=== PATIENT | female | born 1945 ===

== ENCOUNTER 2016-08-23 15:00 | Emergency (ER) | payer OTHER, MEDICAID ==
[2016-08-23 15:07] VITALS: BMI 29.0
[2016-08-23 15:14] VITALS: TEMP 99.8
--- NOTE | 2016-08-23 15:46 | ED PDOC ---
Arrival/HPI - General Chief Complaint: Cough, Cold, Congestion Time Seen by Provider: 08/23/16 15:24 Historian: Patient - History of Present Illness Narrative History of Present Illness (Text): 08/23/16 15:42 A 70 year old female, whose past medical history includes diabetes, hypertension , asthma, pneumonia and CAD, presents to the emergency department complaining of a productive cough for 1 week. History obtained through family who translated for patient. Patient notes yellow colored phlegm and mild shortness of breath. She states her symptoms worsen at night. Patient notes chills and nausea but denies any fever, vomiting, diarrhea, abdominal pain, urinary symptoms, chest pain or any other complaints. Patient denies any sick contact or recent travel. PMD: Dr. Joseph Hagen Time/Duration: 1 week Symptom Course: Unchanged Quality: Other Context: Home Past Medical History - Provider Review Nursing Documentation Reviewed: Yes - Infectious Disease Hx of Infectious Diseases: None - Cardiac Hx Cardiac Disorders: Yes Other/Comment: "heart blockage" - Pulmonary Hx Asthma: Yes - HEENT Hx HEENT Disorder: Yes Other/Comment: glasses - Renal Hx Renal Disorder: No - Endocrine/Metabolic Hx Endocrine Disorders: Yes Hx Diabetes Mellitus Type 2: Yes - Hematological/Oncological Hx Blood Disorders: No - Integumentary Hx Dermatological Disorder: No - Musculoskeletal/Rheumatological Hx Musculoskeletal Disorders: Yes Hx Arthritis: Yes Hx Falls: No Hx Osteoporosis: Yes - Gastrointestinal Hx Gastrointestinal Disorders: Yes Hx Gastroesophageal Reflux: Yes - Genitourinary/Gynecological Hx Genitourinary Disorders: Yes Hx Urinary Tract Infection: Yes - Psychiatric Hx Depression: Yes Hx Emotional Abuse: No Hx Physical Abuse: No Hx Substance Use: No - Surgical History Hx Section: Yes (x2) Hx Orthopedic Surgery: Yes (L wrist surgery) - Anesthesia Hx Anesthesia: Yes Hx Anesthesia Reactions: No - Suicidal Assessment Feels Threatened In Home Enviroment: No Family/Social History - Physician Review Nursing Documentation Reviewed: Yes Family/Social History: No Known Family HX Smoking Status: Never Smoked Hx Alcohol Use: No Hx Substance Use: No Hx Substance Use Treatment: No Allergies/Home Meds Allergies/Adverse Reactions: Allergies No Known Allergies Allergy (Verified 08/23/16 15:06) Home Medications: Home Meds Medication Instructions Recorded Confirmed Atorvastatin Calcium 20 mg PO DAILY 04/07/16 08/23/16 Glimepiride [Amaryl] 4 mg PO BID 04/07/16 08/23/16 Ibuprofen [Motrin Tab] 800 mg PO DAILY PRN 04/07/16 08/23/16 Isosorbide Mononitrate [Imdur] 30 mg PO DAILY 04/07/16 08/23/16 Lisinopril/Hydrochlorothiazide 1 each PO DAILY 04/07/16 08/23/16 [Lisinopril-Hctz 20-25 mg Tab] Montelukast Sodium [Singulair] 10 mg PO DAILY 04/07/16 08/23/16 Promethazine DM [Phenergan DM 2 tsp PO QID PRN 04/07/16 08/23/16 Syrup] Review of Systems - Physician Review All systems were reviewed & negative as marked: Yes - Review of Systems Constitutional: Night Sweats. absent: Fevers Respiratory: SOB, Cough, Sputum Cardiovascular: absent: Chest Pain Gastrointestinal: Nausea. absent: Abdominal Pain, Diarrhea, Vomiting Genitourinary Female: absent: Dysuria, Frequency, Hematuria, Urine Output Changes Physical Exam Vital Signs Reviewed: Yes Vital Signs Temp Pulse Resp BP Pulse Ox 08/23/16 17:00 68 18 148/67 97 08/23/16 15:12 99.8 F H 72 19 150/70 97 Temperature: Febrile Blood Pressure: Normal Pulse: Regular Respiratory Rate: Normal Appearance: Positive for: Well-Appearing, Non-Toxic, Comfortable Pain Distress: None Mental Status: Positive for: Alert and Oriented X 3 - Systems Exam Head: Present: Atraumatic, Normocephalic Pupils: Present: PERRL Extroacular Muscles: Present: EOMI Conjunctiva: Present: Normal Mouth: Present: Moist Mucous Membranes Pharnyx: Present: Normal. No: ERYTHEMA, EXUDATE, TONSILS ENLARGED, Peritonsilar Swelling, Uvular Deviation, Muffled/Hoarse Voice, Strider, Soft Palate/Uvular Edema Neck: Present: Normal Range of Motion Respiratory/Chest: Present: Clear to Auscultation, Good Air Exchange. No: Respiratory Distress, Accessory Muscle Use Cardiovascular: Present: Regular Rate and Rhythm, Normal S1, S2. No: Murmurs Abdomen: Present: Normal Bowel Sounds. No: Tenderness, Distention, Peritoneal Signs Back: Present: Normal Inspection Upper Extremity: Present: Normal Inspection. No: Cyanosis, Edema Lower Extremity: Present: Normal Inspection. No: Edema Neurological: Present: GCS=15, CN II-XII Intact, Speech Normal Skin: Present: Warm, Dry, Normal Color. No: Rashes Psychiatric: Present: Alert, Oriented x 3, Normal Insight, Normal Concentration Medical Decision Making ED Course and Treatment: 08/23/16 15:42 Impression: A 70 year old female with a cough and yellow sputum. Patient notes mild shortness of breath, chills and nausea. Physical exam unremarkable. Plan: -- Chest xray -- Blood culture -- Labs -- Reassess and disposition Prior Visits: Notes and results from previous visits were reviewed. Patient last seen in the ED on 04/07/16 and hospitalized for asthma exacerbation and bronchitis. Progress Notes: - Lab Interpretations Lab Results: 08/23/16 16:15 08/23/16 16:15 Lab Results 08/23/16 16:15: Sodium 142, Potassium 4.5, Chloride 103, Carbon Dioxide 29, Anion Gap 15, BUN 20, Creatinine 1.3, Est GFR ( Amer) 49, Est GFR (Non- Af Amer) 40, Random Glucose 108, Calcium 8.8, Total Bilirubin 0.9, AST 30, ALT 35, Alkaline Phosphatase 113, Total Protein 7.1, Albumin 3.8, Globulin 3.3, Albumin/Globulin Ratio 1.2 08/23/16 16:15: WBC 7.2 D, RBC 3.78, Hgb 10.5 L, Hct 32.0 L, MCV 84.7, MCH 27.8 , MCHC 32.8, RDW 13.7, Plt Count 242, MPV 8.4, Gran % 70.7 H, Lymph % (Auto) 18.8 L, Bollinger % (Auto) 9.0 H, Eos % (Auto) 1.2 L, Baso % (Auto) 0.3, Gran # 5.12 , Lymph # 1.4, Bollinger # 0.7 H, Eos # 0.1, Baso # 0.02 I have reviewed the lab results: Yes - RAD Interpretation Radiology Orders: 08/23/16 15:43 CHEST TWO VIEWS (PA/LAT) [RAD] Stat - Scribe Statement The provider has reviewed the documentation as recorded by the Scribe Nadia Scott Provider Scribe Attestation: All medical record entries made by the Scribe were at my direction and personally dictated by me. I have reviewed the chart and agree that the record accurately reflects my personal performance of the history, physical exam, medical decision making, and the department course for this patient. I have also personally directed, reviewed, and agree with the discharge instructions and disposition. Disposition/Present on Arrival - Present on Arrival Any Indicators Present on Arrival: No History of DVT/PE: No History of Uncontrolled Diabetes: No Urinary Catheter: No History of Decub. Ulcer: No History Surgical Site Infection Following: None - Disposition Have Diagnosis and Disposition been Completed?: Yes Diagnosis: Bronchitis Disposition: HOME/ ROUTINE Disposition Time: 17:40 Patient Plan: Discharge Condition: GOOD Discharge Instructions (ExitCare): Acute Bronchitis (ED) Additional Instructions: Thank you for letting us take care of you today. Your provider was Dr. Kaur. You were treated for bronchitis. The emergency medical care you received today was directed at your acute symptoms. If you were prescribed any medication, please fill it and take as directed. It may take several days for your symptoms to resolve. Return to the Emergency Department if your symptoms worsen, do not improve, or if you have any other problems. Please contact your doctor or call one of the physicians/clinics you have been referred to that are listed on the Patient Visit Information form that is included in your discharge packet. Bring any paperwork you were given at discharge with you along with any medications you are taking to your follow up visit. Our treatment cannot replace ongoing medical care by a primary care provider (PCP) outside of the emergency department. Thank you for allowing the [facility] [employer] team to be part of your care today. Follow up with your doctor in 3-4 days to be re-evaluated. Prescriptions: Azithromycin [Zithromax] 250 mg PO DAILY #6 tab Referrals: Joseph Hagen DO [Primary Care Provider] - Follow up with primary
[2016-08-23 16:24] LABS: ADD MANUAL DIFF? NO
[2016-08-23 16:35] LABS: BASO # 0.02 K/mm3 (0.0-2.0); BASO % 0.3 % (0.0-3.0); EOS # 0.1 (0.0-0.7); EOS % 1.2 % (1.5-5.0); GRAN # 5.12 (1.4-6.5); GRAN % 70.7 % (50.0-68.0); LYMPH # 1.4 (1.2-3.4); LYMPH % 18.8 % (22.0-35.0); MEAN CELL VOLUME 84.7 fL (80.0-105.0); MEAN CORPUSCULAR HEMOGLOBIN 27.8 pg (25.0-35.0); MEAN CORPUSCULAR HGB CONC 32.8 g/dl (31.0-37.0); MEAN PLATELET VOLUME 8.4 fl (7.0-11.0); MONO # 0.7 (0.1-0.6); PLATELET COUNT 242 10^3/uL (120.0-450.0); RED CELL DISTRIBUTION WIDTH 13.7 % (11.5-14.5); WHITE BLOOD COUNT 7.2 10^3/ul (4.5-11.0)
[2016-08-23 16:37] LABS: ALB/GLOB RATIO 1.2 (1.1-1.8); BILIRUBIN,TOTAL 0.9 mg/dL (0.2-1.3); CALCIUM 8.8 mg/dL (8.4-10.5); POTASSIUM 4.5 mmol/L (3.6-5.0); TOTAL PROTEIN 7.1 g/dL (5.8-8.3)
[2016-08-23 17:00] VITALS: PULSE 68
[2016-08-23 19:25] VITALS: BP 147/70; RESP 16; O2SAT 98
--- NOTE | 2016-08-24 08:35 | RAD ---
HISTORY: r/o infiltrate COMPARISON: 04/08/2016 TECHNIQUE: Chest PA and lateral FINDINGS: LUNGS: No active pulmonary disease. PLEURA: No significant pleural effusion identified. No pneumothorax apparent. CARDIOVASCULAR: Normal. OSSEOUS STRUCTURES: No significant abnormalities. VISUALIZED UPPER ABDOMEN: Normal. OTHER FINDINGS: None. IMPRESSION: No active disease.
== END 2016-08-23 18:37 | disposition home or self-care (01) ==
LOC: ED 15:00
DX: J40 Bronchitis, not specified as acute or chronic (principal)

== ENCOUNTER 2016-12-28 10:15 | Emergency (ER) | payer OTHER ==
[2016-12-28 10:15] VITALS: BMI 29.0
[2016-12-28 10:43] VITALS: BP 106/60; PULSE 77; RESP 16; TEMP 98.6; O2SAT 99
--- NOTE | 2016-12-28 11:32 | ED PDOC ---
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 History obtained through scribe who translated for patient. Patient reports she was seen by her PMD who prescribed Silvadene cream. Patient denies any new medication or antibiotic use. Patient denies any fever, chills, nausea or any other complaints. Time/Duration: 1 week Symptom Course: Worsening Quality: Other Context: Home Past Medical History - Provider Review Nursing Documentation Reviewed: Yes - Infectious Disease Hx of Infectious Diseases: None - Cardiac Hx Cardiac Disorders: Yes Hx Hypertension: Yes - Pulmonary Hx Respiratory Disorders: Yes Hx Asthma: Yes - Neurological Hx Neurological Disorder: No - HEENT Hx HEENT Disorder: No - Renal Hx Renal Disorder: No - Endocrine/Metabolic Hx Endocrine Disorders: Yes Hx Diabetes Mellitus Type 2: Yes - Hematological/Oncological Hx Blood Disorders: No - Integumentary Hx Dermatological Disorder: No - Musculoskeletal/Rheumatological Hx Musculoskeletal Disorders: Yes Hx Arthritis: Yes Hx Falls: No Hx Osteoporosis: Yes - Gastrointestinal Hx Gastrointestinal Disorders: Yes Hx Gastroesophageal Reflux: Yes - Genitourinary/Gynecological Hx Genitourinary Disorders: Yes Hx Urinary Tract Infection: Yes - Psychiatric Hx Psychophysiologic Disorder: Yes Hx Depression: Yes Hx Emotional Abuse: No Hx Physical Abuse: No Hx Substance Use: No - Surgical History Hx Cardiac Catheterization: Yes Hx Section: Yes (x2) Hx Orthopedic Surgery: Yes (L wrist surgery) - Anesthesia Hx Anesthesia: Yes Hx Anesthesia Reactions: No - Suicidal Assessment Feels Threatened In Home Enviroment: No Family/Social History - Physician Review Nursing Documentation Reviewed: Yes Family/Social History: No Known Family HX Smoking Status: Never Smoked Hx Alcohol Use: No Hx Substance Use: No Hx Substance Use Treatment: No Allergies/Home Meds Allergies/Adverse Reactions: Allergies No Known Allergies Allergy (Verified 12/28/16 10:43) Physical Exam - Physical Exam Narrative Physical Exam (Text): - Review of Systems Constitutional: Normal. absent: Fatigue, Weight Change, Fevers Eyes: Normal ENT: Normal Respiratory: Normal absent: SOB, Cough, Sputum Cardiovascular: Normal absent: Chest pain, Palpitations, Syncope Gastrointestinal: Normal absent: Abdominal pain, Diarrhea, Nausea, Vomiting Genitourinary: Normal. absent: Dysuria, Frequency, Hematuria Musculoskeletal: Normal. absent: Arthralgias, Back Pain, Neck Pain Skin: (+) Body rash Neurological: Normal absent: Focal Weakness Endocrine: Normal Hemo/Lymphatic: Normal Psychiatric: Normal - Physical exam Patient appears age appropriate, speaking full sentences without difficulty - Systems Exam Head: Present: Atraumatic, Normocephalic Pupils: Present: PERRL Extraocular Muscles: Present: EOMI Conjunctiva: Present: Normal Mouth: Present: Moist Mucous Membranes, Oral mucosa unremarkable. Neck: Present: Normal Range of Motion. No: MIDLINE TENDERNESS, Paraspinal Tenderness Respiratory/Chest: Present: Clear to Auscultation, Good Air Exchange. No: Respiratory Distress, Accessory Muscle Use, Tachypnic Cardiovascular: Present: Regular Rate and Rhythm, Normal S1, S2, Peripheral Pulses Present. No: Murmurs Abdomen: Present: Normal Bowel Sounds, No: Tenderness, Peritoneal Signs, Rebound, Guarding, Distention Back: Present: Normal Inspection. No: Midline Tenderness, Paraspinal Tenderness Upper Extremity: Present: Normal Inspection. No: Cyanosis, Edema Lower Extremity: Present: Normal Inspection. No: Edema Neurological: Present: GCS=15, Speech Normal, cranial nerves II through XII fully intact with no cerebellar abnormality, neuro-sensory fully intact. No focal neurological deficits. Skin: Present: Warm, Dry, Diffuse erythematous rash sparring palms and soles, no evidence of superimposed infection except superficial crust noted around nose. Lymphatic: Present: OX3, NI, NC Psychiatric: Present: Alert, Oriented x 3, Normal Insight, Normal Concentration Vital Signs Reviewed: Yes Vital Signs Temp Pulse Resp BP Pulse Ox 12/28/16 10:43 98.6 F 77 16 106/60 99 Temperature: Afebrile Blood Pressure: Normal Pulse: Regular Respiratory Rate: Normal Appearance: Positive for: Well-Appearing, Non-Toxic, Comfortable Pain Distress: None Mental Status: Positive for: Alert and Oriented X 3 Medical Decision Making ED Course and Treatment: 12/28/16 11:31 Impression: A 71 year old female with a erythematous itchy rash throughout her body. On exam , diffuse rash sparring palms and soles with superficial yellow crusting noted around nose. Prior Visits: Notes and results from previous visits were reviewed. Patient last seen in the ED on 08/23/16 for a cough and discharged with acute bronchitis. Progress Notes: Patient instructed to stop applying Silvadene cream to face and told to use topical Bacitracin. Packets provided to the patient in the emergency room. given Rx for prednisone, benadryl, pepsid pt instructed to f/u with her PMD in 1-2 days for reevaluation states she feels comfortable being dc'd home Pt states she understands to return to the ER right away for new or worsening symptoms or for inability to f/u with PMD or specialist as instructed. Patient states that she fully agrees with and understands discharge instructions. States that she agrees with the plan and disposition. Verbalized and repeated discharge instructions and plan. I have given the patient opportunity to ask any additional questions. - Scribe Statement The provider has reviewed the documentation as recorded by the Romyibe Nadia Scott Provider Scribe Attestation: All medical record entries made by the Scribe were at my direction and personally dictated by me. I have reviewed the chart and agree that the record accurately reflects my personal performance of the history, physical exam, medical decision making, and the department course for this patient. I have also personally directed, reviewed, and agree with the discharge instructions and disposition. Disposition/Present on Arrival - Present on Arrival Any Indicators Present on Arrival: No History of DVT/PE: No History of Uncontrolled Diabetes: No Urinary Catheter: No History of Decub. Ulcer: No History Surgical Site Infection Following: None - Disposition Have Diagnosis and Disposition been Completed?: Yes Diagnosis: Rash Disposition: HOME/ ROUTINE Disposition Time: 11:33 Patient Plan: Discharge Condition: GOOD Discharge Instructions (ExitCare): Acute Rash (ED) Additional Instructions: PLEASE DO NOT APPLY SYLVADENE CREME TO YOUR FACE FOLLOW UP WITH DR. VELEZ IN THE NEXT 48 HOURS FOR REEVALUATION RETURN TO THE ER RIGHT AWAY FOR NEW OR WORSENING SYMPTOMS OR IF YOU CANNOT FOLLOW UP INSTRUCTED Prescriptions: DiphenhydrAMINE [Benadryl] 50 mg PO BID PRN #14 cap PRN Reason: Itching / Pruritus RX: Famotidine [Pepcid] 20 mg PO BID #14 tab RX: predniSONE [predniSONE Tab] 60 mg PO DAILY #12 tab Referrals: Joseph Velez DO [Primary Care Provider] - Follow up with primary Forms: [employer] (Polish)
== END 2016-12-28 11:55 | disposition home or self-care (01) ==
LOC: ED 10:15
DX: R21 Rash and other nonspecific skin eruption (principal)

== ENCOUNTER 2017-01-19 20:14 | Emergency (ER) | payer MEDICARE, OTHER ==
[2017-01-19 20:35] VITALS: BP 114/54; PULSE 89; RESP 16; TEMP 98.2; O2SAT 96; BMI 34.2
--- NOTE | 2017-01-19 20:36 | ED PDOC ---
Arrival/HPI - General Time Seen by Provider: 01/19/17 20:26 Historian: Patient - History of Present Illness Narrative History of Present Illness (Text): 01/19/17 20:27 71 y/o female, pmh including htn/dm/cad, nkda, c/o bilateral arms and facial itching rash x 3 weeks. Itching rash, no pain, admits scratching on it a lot especially the rt. arm region, no fever or chills, no headache or night sweat, no dizziness, no palpitation, no night sweat, no other medical or psychological complaints. Past Medical History - Provider Review Nursing Documentation Reviewed: Yes - Infectious Disease Hx of Infectious Diseases: None - Cardiac Hx Cardiac Disorders: Yes Hx Hypertension: Yes - Pulmonary Hx Respiratory Disorders: Yes Hx Asthma: Yes - Neurological Hx Neurological Disorder: No - HEENT Hx HEENT Disorder: No - Renal Hx Renal Disorder: No - Endocrine/Metabolic Hx Endocrine Disorders: Yes Hx Diabetes Mellitus Type 2: Yes - Hematological/Oncological Hx Blood Disorders: No - Integumentary Hx Dermatological Disorder: No - Musculoskeletal/Rheumatological Hx Musculoskeletal Disorders: Yes Hx Arthritis: Yes Hx Falls: No Hx Osteoporosis: Yes - Gastrointestinal Hx Gastrointestinal Disorders: Yes Hx Gastroesophageal Reflux: Yes - Genitourinary/Gynecological Hx Genitourinary Disorders: Yes Hx Urinary Tract Infection: Yes - Psychiatric Hx Psychophysiologic Disorder: Yes Hx Depression: Yes Hx Emotional Abuse: No Hx Physical Abuse: No Hx Substance Use: No - Surgical History Hx Cardiac Catheterization: Yes Hx Section: Yes (x2) Hx Orthopedic Surgery: Yes (L wrist surgery) - Anesthesia Hx Anesthesia: Yes Hx Anesthesia Reactions: No - Suicidal Assessment Feels Threatened In Home Enviroment: No Family/Social History - Physician Review Nursing Documentation Reviewed: Yes Family/Social History: Unknown Family HX Smoking Status: Never Smoked Hx Alcohol Use: No Hx Substance Use: No Hx Substance Use Treatment: No Allergies/Home Meds Allergies/Adverse Reactions: Allergies No Known Allergies Allergy (Verified 01/19/17 20:33) Home Medications: Home Meds Medication Instructions Recorded Confirmed Aspirin [Lo-Dose Aspirin EC] 81 mg PO DAILY 01/19/17 01/19/17 Isosorbide Mononitrate [Isosorbide 30 mg PO DAILY 01/19/17 01/19/17 Mononitrate ER] Lisinopril/Hydrochlorothiazide 1 each PO DAILY 01/19/17 01/19/17 [Lisinopril-Hctz 10-12.5 mg Tab] Methylprednisolone [Medrol Dose 4 mg PO DAILY 01/19/17 01/19/17 Pack (21 tabs)] Review of Systems - Review of Systems Constitutional: absent: Fatigue, Fevers Eyes: absent: Vision Changes ENT: absent: Hearing Changes Respiratory: absent: SOB, Cough Cardiovascular: absent: Chest Pain Gastrointestinal: absent: Abdominal Pain, Diarrhea, Nausea, Vomiting Musculoskeletal: absent: Arthralgias, Back Pain Skin: Rash, Pruritis, Skin Lesions. absent: Laceration, Abscess, Ulcer Neurological: absent: Headache, Dizziness Physical Exam Vital Signs Reviewed: Yes Temperature: Afebrile Pulse: Regular Respiratory Rate: Normal Appearance: Positive for: Well-Appearing, Non-Toxic, Comfortable Pain Distress: None Mental Status: Positive for: Alert and Oriented X 3 - Systems Exam Head: Present: Atraumatic, Normocephalic Pupils: Present: PERRL Extroacular Muscles: Present: EOMI Conjunctiva: Present: Normal Mouth: Present: Moist Mucous Membranes Neck: Present: Normal Range of Motion Respiratory/Chest: Present: Clear to Auscultation, Good Air Exchange. No: Respiratory Distress, Accessory Muscle Use Cardiovascular: Present: Regular Rate and Rhythm, Normal S1, S2. No: Murmurs Abdomen: Present: Normal Bowel Sounds. No: Tenderness, Distention, Peritoneal Signs Back: Present: Normal Inspection Upper Extremity: Present: Normal Inspection. No: Cyanosis, Edema Lower Extremity: Present: Normal Inspection. No: Edema Neurological: Present: GCS=15, Speech Normal, Motor Func Grossly Intact, Gait Normal, Memory Normal Skin: Present: Warm, Dry, Rashes (bilateral upper extremities on the extensor surface and bilateral nasal/labial fold regions: there is lichenication and hyperkerotic rash noted with the rt. humeral extensor region with mild erythematous but no streaking or ulcers. ), Normal Color Psychiatric: Present: Alert, Oriented x 3, Normal Insight, Normal Concentration Medical Decision Making ED Course and Treatment: 01/19/17 20:40 -decadrone IM and keflex po -Discharge home with lotrisone, keflex, stay hyrated, avoid rubbing or touching the rash, follow up with your own pmd and solid propellant processor within 2 days, return to the ER for any new or worsening signs or symptoms. - PA / NURSING INFORMATION SYSTEMS COORDINATOR / Resident Statement MD/DO has reviewed & agrees with the documentation as recorded. Disposition/Present on Arrival - Present on Arrival Any Indicators Present on Arrival: No History of DVT/PE: No History of Uncontrolled Diabetes: No Urinary Catheter: No History of Decub. Ulcer: No History Surgical Site Infection Following: None - Disposition Have Diagnosis and Disposition been Completed?: Yes Diagnosis: Contact dermatitis, Cellulitis Disposition: HOME/ ROUTINE Disposition Time: 20:41 Patient Plan: Discharge Condition: GOOD Discharge Instructions (ExitCare): Cellulitis (ED) Additional Instructions: -Discharge home with lotrisone, keflex, stay hyrated, avoid rubbing or touching the rash, follow up with your own pmd and solid propellant processor within 2 days, return to the ER for any new or worsening signs or symptoms. Prescriptions: Cephalexin [Keflex] 500 mg PO QID #28 capsule Clotrimazole/Betamethasone [Lotrisone] 1 appful EXT BID #60 g Referrals: Fani Gleason MD [Staff Provider] - Follow up with primary Forms: WORK NOTE
== END 2017-01-19 21:00 | disposition home or self-care (01) ==
LOC: ED 20:14
DX: L25.9 Unspecified contact dermatitis, unspecified cause (principal); L03.113 Cellulitis of right upper limb
CPT/HCPCS: 96372; 99283; J1100

== ENCOUNTER 2017-02-19 21:36 | Emergency (ER) | payer MEDICAID, MEDICARE, OTHER ==
[2017-02-19 21:37] VITALS: BMI 34.2
--- NOTE | 2017-02-19 21:55 | ED PDOC ---
Arrival/HPI - General Time Seen by Provider: 02/19/17 21:44 Historian: Patient - History of Present Illness Narrative History of Present Illness (Text): 02/19/17 21:52 71 y/o female, pmh including htn/asthma, nkda, not on any anticoagulant or antiplatete, c/o rt. shoulder pain s/p slipped and fall in the shower yesterday. Pt. was taking the shower yesterday, slipped on the wet floor, fall on the rt. shoulder and hit the posterior aspect of the head, no LOC, no nausea or vomiting, able to recall the whole event, no chest pain or shortness of breath, no palpitation, no neck/back pain, no abdominal pain, no hematuria, no night sweat, eating and drinking well, scheduled to see her own pmd next week regarding about the frequent fall, no change in energy level, no other medical or psychological complaints. Past Medical History - Provider Review Nursing Documentation Reviewed: Yes - Infectious Disease Hx of Infectious Diseases: None - Cardiac Hx Cardiac Disorders: Yes Hx Hypertension: Yes - Pulmonary Hx Respiratory Disorders: Yes Hx Asthma: Yes - Neurological Hx Neurological Disorder: No - HEENT Hx HEENT Disorder: No - Renal Hx Renal Disorder: No - Endocrine/Metabolic Hx Endocrine Disorders: Yes Hx Diabetes Mellitus Type 2: Yes - Hematological/Oncological Hx Blood Disorders: No - Integumentary Hx Dermatological Disorder: No - Musculoskeletal/Rheumatological Hx Musculoskeletal Disorders: Yes Hx Arthritis: Yes Hx Falls: No Hx Osteoporosis: Yes - Gastrointestinal Hx Gastrointestinal Disorders: Yes Hx Gastroesophageal Reflux: Yes - Genitourinary/Gynecological Hx Genitourinary Disorders: Yes Hx Urinary Tract Infection: Yes - Psychiatric Hx Psychophysiologic Disorder: Yes Hx Depression: Yes Hx Emotional Abuse: No Hx Physical Abuse: No Hx Substance Use: No - Surgical History Hx Cardiac Catheterization: Yes Hx Section: Yes (x2) Hx Orthopedic Surgery: Yes (L wrist surgery) - Anesthesia Hx Anesthesia: Yes Hx Anesthesia Reactions: No - Suicidal Assessment Feels Threatened In Home Enviroment: No Family/Social History - Physician Review Nursing Documentation Reviewed: Yes Family/Social History: Unknown Family HX Smoking Status: Never Smoked Hx Alcohol Use: No Hx Substance Use: No Hx Substance Use Treatment: No Allergies/Home Meds Allergies/Adverse Reactions: Allergies No Known Allergies Allergy (Verified 01/19/17 20:33) Home Medications: Home Meds Medication Instructions Recorded Confirmed Aspirin [Lo-Dose Aspirin EC] 81 mg PO DAILY 01/19/17 02/19/17 Isosorbide Mononitrate [Isosorbide 30 mg PO DAILY 01/19/17 02/19/17 Mononitrate ER] Lisinopril/Hydrochlorothiazide 1 each PO DAILY 01/19/17 02/19/17 [Lisinopril-Hctz 10-12.5 mg Tab] Methylprednisolone [Medrol Dose 4 mg PO DAILY 01/19/17 02/19/17 Pack (21 tabs)] Review of Systems - Review of Systems Constitutional: absent: Fatigue, Fevers Eyes: absent: Vision Changes ENT: absent: Hearing Changes Respiratory: absent: SOB, Cough Cardiovascular: absent: Chest Pain Gastrointestinal: absent: Abdominal Pain, Nausea, Vomiting Genitourinary Female: absent: Dysuria, Frequency, Hematuria, Urine Output Changes Musculoskeletal: Arthralgias. absent: Back Pain, Neck Pain Neurological: absent: Headache, Dizziness Psychiatric: absent: Anxiety, Depression Physical Exam Vital Signs Reviewed: Yes Vital Signs Temp Pulse Resp BP Pulse Ox 02/19/17 21:50 98.2 F 76 18 132/68 98 Temperature: Afebrile Blood Pressure: Normal Pulse: Regular Respiratory Rate: Normal Appearance: Positive for: Well-Appearing, Non-Toxic, Comfortable Pain Distress: Mild Mental Status: Positive for: Alert and Oriented X 3 - Systems Exam Head: Present: Atraumatic, Normocephalic Pupils: Present: PERRL Extroacular Muscles: Present: EOMI Conjunctiva: Present: Normal Ears: Present: NORMAL TM, Normal Canal. No: Erythema Mouth: Present: Moist Mucous Membranes Pharnyx: No: ERYTHEMA, EXUDATE, TONSILS ENLARGED Nose (External): No: Atraumatic, Abrasion, Contusion Nose (Internal): No: Normal Inspection, No Active Bleeding, Rhinorrhea Neck: Present: Normal Range of Motion, Trachea Midline. No: Meningeal Signs, MIDLINE TENDERNESS, Paraspinal Tenderness, Lymphadenopathy Respiratory/Chest: Present: Clear to Auscultation, Good Air Exchange, Other (no ecchymosis or any skin discoloration). No: Respiratory Distress, Accessory Muscle Use, Wheezes, Decreased Breath Sounds, Rales, Retracting, Rhonchi, Tachypneic, Tender to Palpation Cardiovascular: Present: Regular Rate and Rhythm, Normal S1, S2. No: Murmurs Abdomen: Present: Normal Bowel Sounds. No: Tenderness, Distention, Peritoneal Signs, Rebound, Guarding Back: Present: Normal Inspection, Other (no ecchymosis or skin discoloration). No: CVA Tenderness, Midline Tenderness, Paraspinal Tenderness Upper Extremity: Present: Normal Inspection, Normal ROM, NORMAL PULSES, Neurovascularly Intact, Capillary Refill < 2s, Other (Rt. shoulder: mild +ttp on the rt. posterior shoulder joint line, no swelling, no deformity, FROM without limitation, sensation intact, motor 5/5, +radial pulse, capillary refill < 2 seconds. ). No: Cyanosis, Edema, Deformity Lower Extremity: Present: Normal Inspection, Normal ROM. No: Edema, Tenderness , Swelling, Deformity Neurological: Present: GCS=15, Speech Normal, Motor Func Grossly Intact, Gait Normal, Memory Normal Skin: Present: Warm, Dry, Normal Color. No: Rashes Psychiatric: Present: Alert, Oriented x 3, Normal Insight, Normal Concentration Medical Decision Making ED Course and Treatment: 02/19/17 22:16 -CT head/rt. shoulder xray -tylenol for pain -sling -Observe and reassess 02/19/17 23:48 -CT Head show no acute findings -Rt. shoulder xray show no active disease -UA show no UTI -Pain improved, will discharge home. -Discharge home with tylenol, sling, bed rest, follow up with your own pmd and orthopedic/neurologist within 2 days, return to the ER for any new or worsening signs or symptoms. - Lab Interpretations Lab Results: Lab Results 02/19/17 22:45: Urine Color Yellow, Urine Appearance Clear, Urine pH 6.0, Ur Specific [place] 1.010, Urine Protein Negative, Urine Glucose (UA) 500 H, Urine Ketones Negative, Urine Blood Small H, Urine Nitrate Negative, Urine Bilirubin Negative, Urine Urobilinogen 0.2, Ur Leukocyte Esterase Negative, Urine RBC 0 - 2, Urine WBC Negative I have reviewed the lab results: Yes Interpretation: No clinic. lab abnormalty - RAD Interpretation Radiology Orders: 02/19/17 22:11 HEAD W/O CONTRAST [CT] Stat SHOULDER RIGHT [RAD] Stat CT Head: FINDINGS: Artifacts: Streak artifact degrades image quality. Motion artifact degrades image quality. Brain: Ventricles are normal in size and configuration. There is no midline shift. There are no intraaxial or extra-axial mass lesions or areas of hemorrhage. There are no abnormal fluid collections. Engel-white differentiation is maintained. Ventricles: See above. Bones: Cranial vault is intact. There is congenital nonunion of the posterior arch of C1 Soft tissues: unremarkable Sinuses: There is no acute sinusitis. Ears and mastoids: Middle ears are unremarkable. Right mastoid is incompletely pneumatized. Left mastoid is unremarkable. Orbits: Orbital contents are unremarkable. IMPRESSION: No acute intracranial abnormality Thank you for allowing us to participate in the care of your patient. Dictated and Authenticated by: Milagro Morales MD 02/19/2017 11:40 PM Eastern Time ([place] & [place]) Rt. shoulder xray: degenerative changes without fracture or dislocation Negotiator Sales: Radiologist - Medication Orders Current Medication Orders: Discontinued Medications Acetaminophen (Tylenol 325mg Tab) 650 mg PO STAT STA Stop: 02/19/17 22:18 Last Admin: 02/19/17 22:33 Dose: 650 mg MAR Pain/Vitals Document 02/19/17 22:33 SS (Rec: 02/19/17 22:34 SS [id number]) Pain Reassessment Is This A Pain ReAssessment? No Sleep Is patient sleeping during reassessment? No Presence of Pain Presence of Pain Yes Location Left, Right or Bilateral Right Pain Location Body Site Shoulder - PA / SERVICES MGR / Resident Statement MD/DO has reviewed & agrees with the documentation as recorded. Disposition/Present on Arrival - Present on Arrival Any Indicators Present on Arrival: No History of DVT/PE: No History of Uncontrolled Diabetes: No Urinary Catheter: No History of Decub. Ulcer: No History Surgical Site Infection Following: None - Disposition Have Diagnosis and Disposition been Completed?: Yes Diagnosis: Accidental fall, Shoulder injury, Shoulder pain, Head injury Disposition: HOME/ ROUTINE Disposition Time: 23:49 Patient Plan: Discharge Condition: IMPROVED Additional Instructions: -Discharge home with tylenol, sling, bed rest, follow up with your own pmd and orthopedic/neurologist within 2 days, return to the ER for any new or worsening signs or symptoms. Prescriptions: Acetaminophen [Tylenol 325mg tab] 2 tab PO QID PRN #30 tab PRN Reason: Other Referrals: Shai Roblero MD [Staff Provider] - Follow up with primary Bhavesh Flores MD [Staff Provider] - Follow up with primary [facility] [place] - Follow up with primary Forms: WORK NOTE
[2017-02-19 22:10] VITALS: BP 132/68; PULSE 76; RESP 18; TEMP 98.2; O2SAT 98
[2017-02-19 22:54] LABS: URINE BILIRUBIN NEGATIVE (NEGATIVE); URINE BLOOD SMALL (NEGATIVE); URINE GLUCOSE (UA) 500 mg/dL (NEGATIVE); URINE KETONE NEGATIVE (NEGATIVE); URINE LEUKOCYTE ESTERASE NEGATIVE Leu/uL (NEGATIVE); URINE PROTEIN NEGATIVE mg/dL (<30 mg/dL); URINE UROBILINOGEN 0.2 E.U./dL (<1 E.U./dL)
[2017-02-19 22:59] LABS: URINE APPEARANCE CLEAR (CLEAR); URINE COLOR YELLOW (YELLOW); URINE RBC 0 - 2 /hpf (0-2); URINE WBC NEGATIVE /hpf (0-6)
--- NOTE | 2017-02-19 23:41 | CT ---
EXAM: CT Head Without Intravenous Contrast EXAM DATE/TIME: 02/19/2017 10:11 PM CLINICAL HISTORY: 71 years old, female; Injury or trauma; Fall; Initial encounter; Sprain or strain; Additional info: Slip and fall yesterday. Part of scan repeated due to patient motion. TECHNIQUE: Axial computed tomography images of the head/brain without intravenous contrast. All CT scans at this facility use one or more dose reduction techniques, viz.: automated exposure control; ma/kV adjustment per patient size (including targeted exams where dose is matched to indication; i.e. head); or iterative reconstruction technique. COMPARISON: There are no prior studies for comparison. FINDINGS: Artifacts: Streak artifact degrades image quality. Motion artifact degrades image quality. Brain: Ventricles are normal in size and configuration. There is no midline shift. There are no intra-axial or extra-axial mass lesions or areas of hemorrhage. There are no abnormal fluid collections. Engel-white differentiation is maintained. Ventricles: See above. Bones: Cranial vault is intact. There is congenital nonunion of the posterior arch of C1 Soft tissues: unremarkable Sinuses: There is no acute sinusitis. Ears and mastoids: Middle ears are unremarkable. Right mastoid is incompletely pneumatized. Left mastoid is unremarkable. Orbits: Orbital contents are unremarkable. IMPRESSION: No acute intracranial abnormality
--- NOTE | 2017-02-20 10:14 | RAD ---
PROCEDURE: Radiographs of the Right Shoulder HISTORY: rt. shoulder pain s/p slip and fall yesterday. COMPARISON: No prior. FINDINGS: BONES: No acute fracture or destructive bony lesion identified. JOINTS: Glenohumeral and acromioclavicular joints are remarkable only for acromioclavicular joint degenerative osteophytes superiorly and inferiorly. SOFT TISSUES: Normal. OTHER FINDINGS: None. IMPRESSION: Degenerative acromioclavicular joint changes without fracture or dislocation identified throughout the exam.
== END 2017-02-20 00:25 | disposition home or self-care (01) ==
LOC: ED 21:36
DX: S09.90XA Unspecified injury of head, initial encounter (principal); S49.91XA Unspecified injury of right shoulder and upper arm, initial encounter; W01.0XXA Fall on same level from slipping, tripping and stumbling without subsequent striking against object, initial encounter; M25.511 Pain in right shoulder; E11.9 Type 2 diabetes mellitus without complications; I10 Essential (primary) hypertension; M81.0 Age-related osteoporosis without current pathological fracture

== ENCOUNTER 2017-06-10 14:31 | Emergency (ER) | payer OTHER ==
[2017-06-10 15:29] VITALS: BMI 30.1
--- NOTE | 2017-06-10 17:17 | ED PDOC ---
Arrival/HPI - General Chief Complaint: Hip Pain Time Seen by Provider: 06/10/17 15:41 Historian: Patient - History of Present Illness Narrative History of Present Illness (Text): 06/10/17 17:12 71-year-old female presents with right-sided back pain and right hip pain that started this morning. Patient states when she woke up from sleep she had a severe pain in the right side of the back. Patient states the pain goes into the hip and down the leg. Patient states pain is worse with movement of the back , worse with movement of the leg and worse with ambulation. Patient went to the primary care physician and was advised to come to the emergency room for further evaluation to rule out hip fracture. Patient denies any recent trauma or injury. No medications have been taken for pain at home. She denies bladder or bowel incontinence. She denies abdominal pain. No chest pain or shortness of breath. She denies numbness or tingling in the extremity. No other complaints Past Medical History - Provider Review Nursing Documentation Reviewed: Yes - Travel History Have you recently traveled outside [place] w/in the past 3 mons?: No - Infectious Disease Hx of Infectious Diseases: None - Cardiac Hx Cardiac Disorders: Yes Hx Hypertension: Yes - Pulmonary Hx Respiratory Disorders: Yes Hx Asthma: Yes - Neurological Hx Neurological Disorder: No - HEENT Hx HEENT Disorder: No - Renal Hx Renal Disorder: No - Endocrine/Metabolic Hx Endocrine Disorders: Yes Hx Diabetes Mellitus Type 2: Yes - Hematological/Oncological Hx Blood Disorders: No - Integumentary Hx Dermatological Disorder: No - Musculoskeletal/Rheumatological Hx Musculoskeletal Disorders: Yes Hx Arthritis: Yes Hx Falls: No Hx Osteoporosis: Yes - Gastrointestinal Hx Gastrointestinal Disorders: Yes Hx Gastroesophageal Reflux: Yes - Genitourinary/Gynecological Hx Genitourinary Disorders: Yes Hx Urinary Tract Infection: Yes - Psychiatric Hx Psychophysiologic Disorder: Yes Hx Depression: Yes Hx Emotional Abuse: No Hx Physical Abuse: No Hx Substance Use: No - Surgical History Hx Cardiac Catheterization: Yes Hx Section: Yes (x2) Hx Orthopedic Surgery: Yes (L wrist surgery) - Anesthesia Hx Anesthesia: Yes Hx Anesthesia Reactions: No - Suicidal Assessment Feels Threatened In Home Enviroment: No Family/Social History - Physician Review Nursing Documentation Reviewed: Yes Family/Social History: Unknown Family HX Smoking Status: Never Smoked Hx Alcohol Use: No Hx Substance Use: No Hx Substance Use Treatment: No Allergies/Home Meds Allergies/Adverse Reactions: Allergies No Known Allergies Allergy (Verified 01/19/17 20:33) Home Medications: Home Meds Medication Instructions Recorded Confirmed Isosorbide Mononitrate [Isosorbide 30 mg PO DAILY 01/19/17 06/10/17 Mononitrate ER] Lisinopril/Hydrochlorothiazide 1 each PO DAILY 01/19/17 06/10/17 [Lisinopril-Hctz 10-12.5 mg Tab] Insulin Glargine, Recombina 30 units SQ HS 06/10/17 06/10/17 [Lantus] Review of Systems - Review of Systems Constitutional: absent: Fatigue, Fevers Respiratory: absent: SOB, Cough Cardiovascular: absent: Chest Pain, Palpitations Gastrointestinal: absent: Abdominal Pain, Nausea, Vomiting Genitourinary Female: absent: Dysuria Musculoskeletal: Arthralgias, Back Pain. absent: Neck Pain Skin: absent: Rash, Pruritis Neurological: absent: Headache, Dizziness Psychiatric: absent: Anxiety, Depression, Suicidal Ideation Physical Exam Vital Signs Reviewed: Yes Vital Signs Temp Pulse Resp BP Pulse Ox 06/10/17 20:20 97 F L 77 16 100/53 L 99 06/10/17 14:31 97 F L 76 18 110/55 L 97 Temperature: Afebrile Blood Pressure: Normal Pulse: Regular Respiratory Rate: Normal Appearance: Positive for: Well-Appearing, Non-Toxic, Comfortable Pain Distress: None Mental Status: Positive for: Alert and Oriented X 3 Finger Stick Blood Glucose: 124 - Systems Exam Head: Present: Atraumatic Mouth: Present: Moist Mucous Membranes Neck: Present: Normal Range of Motion Respiratory/Chest: Present: Clear to Auscultation, Good Air Exchange. No: Respiratory Distress, Accessory Muscle Use Cardiovascular: Present: Regular Rate and Rhythm, Normal S1, S2. No: Murmurs Abdomen: Present: Normal Bowel Sounds. No: Tenderness, Distention, Peritoneal Signs, Rebound, Guarding Back: Present: Normal Inspection, Midline Tenderness, Paraspinal Tenderness Upper Extremity: Present: Normal Inspection, Normal ROM Lower Extremity: Present: Normal Inspection, NORMAL PULSES, Tenderness (right hip: + ttp over anterior and posterior aspect of the hip; limited rom of hip with pain. ), Capillary Refill < 2 s. No: Edema, CALF TENDERNESS, Normal ROM, Swelling, Erythema Neurological: Present: GCS=15, Speech Normal Skin: Present: Warm, Dry, Normal Color. No: Rashes Psychiatric: Present: Alert, Oriented x 3 Medical Decision Making ED Course and Treatment: 06/10/17 17:39 71yr old female with right sided back pain and hip pain since this morning. no trauma or injury. cbc; wbc; 11.4 cmp: wnl xray right hip; no fracture ua; + leukocytes, moderate bacteria. 06/10/17 22:58 pt with multiple attempts to ambulate in er; unsuccessful. pt is a diabetic who lives along with back pain, hip pain and difficulty ambulating with ct that shows arthritic changes in back with canal stenosis. 06/10/17 23:02 case was discussed with dr. rg; she would like patient admitted to hospitalist. case discussed with dr. plata. accepts patient; will see patient at bedside. impression; back pain, hip pain, inability to ambulate, admit med/surg - Lab Interpretations Lab Results: 06/10/17 17:00 06/10/17 17:00 Lab Results 06/10/17 21:23: Urine Color Yellow, Urine Appearance Clear, Urine pH 6.0, Ur Specific [place] 1.025, Urine Protein Negative, Urine Glucose (UA) Negative, Urine Ketones Negative, Urine Blood Negative, Urine Nitrate Negative, Urine Bilirubin Negative, Urine Urobilinogen 0.2, Ur Leukocyte Esterase Trace H, Urine RBC 0 - 2, Urine WBC 2 - 5, Ur Epithelial Cells 3 - 4, Urine Bacteria Mod 06/10/17 17:00: PT 11.8, INR 1.03, APTT 22.5 L 06/10/17 17:00: WBC 11.4 H D, RBC 4.31, Hgb 11.8 L, Hct 36.3, MCV 84.2, MCH 27.4 , MCHC 32.5, RDW 13.6, Plt Count 210, MPV 8.8, Gran % 82.6 H, Lymph % (Auto) 10.1 L, [place] % (Auto) 7.0 H, Eos % (Auto) 0.2 L, Baso % (Auto) 0.1, Gran # 9.41 H, Lymph # (Auto) 1.2, [place] # (Auto) 0.8 H, Eos # (Auto) 0.0, Baso # (Auto) 0.01 06/10/17 17:00: Sodium 143, Potassium 4.0, Chloride 103, Carbon Dioxide 30, Anion Gap 14, BUN 18, Creatinine 1.0, Est GFR ( Amer) > 60, Est GFR (Non- Af Amer) 55, Random Glucose 107, Calcium 9.8, Total Bilirubin 0.6, AST 30, ALT 32, Alkaline Phosphatase 78, Total Protein 6.7, Albumin 3.8, Globulin 2.9, Albumin/Globulin Ratio 1.3 - RAD Interpretation Radiology Orders: 06/10/17 15:41 Hip Right [HIP MIN 2V W/ PELVIS RT] [RAD] Stat 06/10/17 18:12 LUMBAR SPINE W/O CONTRAST [CT] Stat 06/10/17 18:14 EXT LOWER W/O CONTRAST RIGHT [CT] Stat - Medication Orders Current Medication Orders: Discontinued Medications Tramadol HCl (Ultram) 50 mg PO STAT STA Stop: 06/10/17 15:47 Last Admin: 06/10/17 18:11 Dose: 50 mg [facility] Pain Assessment Document 06/10/17 18:11 LA (Rec: 06/10/17 18:11 [place] [facility] [id number] Pain Reassessment Is this a pain reassessment? No Sleep Is patient sleeping during reassessment? No Presence of Pain Presence of Pain No Pain Scale Used Pain Scale Used Numeric Location Left, Right or Bilateral Right Pain Location Body Site Hip Disposition/Present on Arrival - Present on Arrival Any Indicators Present on Arrival: No History of DVT/PE: No History of Uncontrolled Diabetes: No Urinary Catheter: No History of Decub. Ulcer: No History Surgical Site Infection Following: None - Disposition Have Diagnosis and Disposition been Completed?: Yes Diagnosis: Back pain, Hip pain, Compression fracture of body of thoracic vertebra, Inability to ambulate due to hip Disposition: HOSPITALIZED Disposition Time: 21:00 Condition: FAIR Referrals: Joesph Hagen DO [Primary Care Provider] - Follow up with primary Forms: [employer] (Yoruba)
[2017-06-10 17:22] LABS: BASO # 0.01 K/mm3 (0.0-2.0); BASO % 0.1 % (0.0-3.0); EOS % 0.2 % (1.5-5.0); GRAN # 9.41 (1.4-6.5); GRAN % 82.6 % (50.0-68.0); HEMOGLOBIN 11.8 g/dL (12.0-16.0); LYMPH # 1.2 (1.2-3.4); LYMPH % 10.1 % (22.0-35.0); MEAN CELL VOLUME 84.2 fl (80.0-105.0); MEAN CORPUSCULAR HEMOGLOBIN 27.4 pg (25.0-35.0); MEAN CORPUSCULAR HGB CONC 32.5 g/dl (31.0-37.0); MEAN PLATELET VOLUME 8.8 fl (7.0-11.0); MONO # 0.8 (0.1-0.6); RBC 4.31 10^6/uL (3.5-6.1); RED CELL DISTRIBUTION WIDTH 13.6 % (11.5-14.5); WHITE BLOOD COUNT 11.4 10^3/ul (4.5-11.0)
[2017-06-10 17:35] LABS: INR 1.03 (0.93-1.08); PARTIAL THROMBOPLASTIN TIME 22.5 Seconds (25.1-36.5); PROTHROMBIN TIME 11.8 SECONDS (9.4-12.5)
[2017-06-10 17:39] LABS: ALB/GLOB RATIO 1.3 (1.1-1.8); ALBUMIN 3.8 g/dL (3.0-4.8); ALT/SGPT 32 U/L (7-56); AST/SGOT 30 U/L (14-36); BLOOD UREA NITROGEN 18 mg/dL (7-21); CALCIUM 9.8 mg/dL (8.4-10.5); GFR AFRICAN-AMERICAN > 60; GFR NON-AFRICAN AMERICAN 55
--- NOTE | 2017-06-10 19:49 | CT ---
EXAM: CT Lumbar Spine Without Intravenous Contrast CLINICAL HISTORY: 71 years old, female; Pain; Lumbago with sciatica; Bilateral; Additional info: Back pain TECHNIQUE: Axial computed tomography images of the lumbar spine without intravenous contrast. All CT scans at this facility use one or more dose reduction techniques, viz.: automated exposure control; ma/kV adjustment per patient size (including targeted exams where dose is matched to indication; i.e. head); or iterative reconstruction technique. Coronal and sagittal reformatted images were created and reviewed. COMPARISON: No relevant prior studies available. FINDINGS: Vertebrae: Mild compression deformity superior endplate T11 vertebral body, subacute to chronic. Minimal biconcave deformities of remaining vertebral bodies. Mild facet osteoarthrosis within lower lumbar spine. Discs/spinal canal/neural foramina: Early degenerative disc disease at L1-L2, L2-L3, L3-4, L4-L5. Mild degenerative disease at L5-S1 level. Disc herniations at L1-L2, L2-L3, L3-4, L4-L5, L5-S1 levels. Mild central canal stenosis at L1-L2 level. Moderate canal stenosis at L2-L3 level. Severe central canal stenosis at L3-L4, L4-L5 levels. Neuroforaminal narrowing at L3-L4, L4-L5, L5-S1 levels. Soft tissues: Unremarkable. Other findings: Small hiatal hernia. IMPRESSION: 1. T11 compression deformity, subacute to chronic. 2. Multilevel degenerative disc disease and facet osteoarthrosis. 3. If back pain persists, consider MRI for further evaluation. 4. Incidental/non-acute findings are described above.
--- NOTE | 2017-06-10 19:59 | CT ---
EXAM: CT Right Lower Extremity Without Intravenous Contrast, Hip CLINICAL HISTORY: 71 years old, female; Pain; Hip; Right; Additional info: Right hip pain TECHNIQUE: Axial computed tomography images of the right hip without intravenous contrast. All CT scans at this facility use one or more dose reduction techniques, viz.: automated exposure control; ma/kV adjustment per patient size (including targeted exams where dose is matched to indication; i.e. head); or iterative reconstruction technique. Coronal and sagittal reformatted images were created and reviewed. COMPARISON: No relevant prior studies available. FINDINGS: Bones/joints: No acute fracture. No dislocation. Soft tissues: Unremarkable. IMPRESSION: 1. No fracture. 2. If hip pain persists, consider MRI to exclude occult fracture/internal derangement.
[2017-06-10 20:22] VITALS: RESP 16
[2017-06-10 21:40] LABS: URINE BILIRUBIN NEGATIVE (NEGATIVE); URINE BLOOD NEGATIVE (NEGATIVE); URINE GLUCOSE (UA) NEGATIVE (NEGATIVE); URINE LEUKOCYTE ESTERASE TRACE Leu/uL (NEGATIVE); URINE NITRATE NEGATIVE (NEGATIVE); URINE PROTEIN NEGATIVE mg/dL (<30 mg/dL); URINE UROBILINOGEN 0.2 E.U./dL (<1 E.U./dL)
[2017-06-10 21:50] LABS: URINE APPEARANCE CLEAR (CLEAR); URINE COLOR YELLOW (YELLOW)
[2017-06-10 21:51] LABS: URINE BACTERIA MOD (NEG); URINE RBC 0 - 2 /hpf (0-2)
[2017-06-10 23:54] VITALS: BP 112/82; PULSE 82; TEMP 98.1; O2SAT 100
--- NOTE | 2017-06-11 02:37 | CP.PCM.CON ---
History of Present Illness - History of Present Illness History of Present Illness: After thoroughly evaluating the patient in the ED, she doesn't require inpatient care at this time. The etiology of her acute hip pain is likely due to a combination of mild vertebral deformities as a result of inadequately managed osteoporosis (as patient doesn't take any Vit-D or calcium supplements etc) as well as vertebral osteoarthritis. Hip x-ray done in the ED is negative for acute fracture. Also, the patient does not demonstrate any "alarm signs or symptoms" such as perineal anesthesia, incontinence or focal neuro deficits. Additionally, she was also able to ambulate to the ED bathroom using a cane ( which she always uses), with minimal pain. Consequently, the patient will be discharged home from the ED with a prescription for Tramadol to be taken, as needed, until her acute symptoms resolve. She will also be given a script for a 3-day course of oral Cipro for treatment of uncomplicated cystitis. The patient (and her daughter) were both strongly advised to follow-up with her PMD within the next 3-4 days. Also, the patient (and daughter) were advised to return to the ED [facility] if symptoms persist or worsen. Of note, the patient's daughter plans to leave with the patient tonight and stay with her for the next few days. Past Patient History - Infectious Disease Hx of Infectious Diseases: None - Past Social History Smoking Status: Never Smoked - CARDIAC Hx Cardiac Disorders: Yes Hx Hypertension: Yes - PULMONARY Hx Respiratory Disorders: Yes Hx Asthma: Yes - NEUROLOGICAL Hx Neurological Disorder: No - HEENT Hx HEENT Problems: No - RENAL Hx Chronic Kidney Disease: No - ENDOCRINE/METABOLIC Hx Endocrine Disorders: Yes Hx Diabetes Mellitus Type 2: Yes - HEMATOLOGICAL/ONCOLOGICAL Hx Blood Disorders: No - INTEGUMENTARY Hx Dermatological Problems: No - MUSCULOSKELETAL/RHEUMATOLOGICAL Hx Musculoskeletal Disorders: Yes Hx Arthritis: Yes Hx Falls: No Hx Osteoporosis: Yes - GASTROINTESTINAL Hx Gastrointestinal Disorders: Yes Hx Gastroesophageal Reflux: Yes - GENITOURINARY/GYNECOLOGICAL Hx Genitourinary Disorders: Yes Hx Urinary Tract Infection: Yes - PSYCHIATRIC Hx Psychophysiologic Disorder: Yes Hx Depression: Yes Hx Emotional Abuse: No Hx Physical Abuse: No Hx Substance Use: No - SURGICAL HISTORY Hx Cardiac Catheterization: Yes Hx Section: Yes (x2) Hx Orthopedic Surgery: Yes (L wrist surgery) - ANESTHESIA Hx Anesthesia: Yes Hx Anesthesia Reactions: No Meds Home Medications: Home Medication List Medication Instructions Recorded Confirmed Type Ciprofloxacin 250 mg PO Q12H #6 ml 06/10/17 Rx Tramadol HCl/Acetaminophen 1 tbs PO Q6H PRN #20 tablet 06/10/17 Rx [Tramadol-Acetaminophn 37.5-325] Allergies/Adverse Reactions: Allergies Allergy/AdvReac Type Severity Reaction Status Date / Time No Known Allergies Allergy Verified 01/19/17 20:33 Results - Vital Signs Recent Vital Signs: Last Vital Signs Temp 98.1 F 06/10/17 21:53 Pulse 82 06/10/17 21:53 Resp 16 06/10/17 20:20 BP 112/82 06/10/17 21:53 Pulse Ox 100 06/10/17 21:53 - Labs Result Diagrams: 06/10/17 17:00 06/10/17 17:00 Labs: Laboratory Results - last 24 hr 06/10/17 06/10/17 06/10/17 17:00 17:00 17:00 WBC 11.4 H D RBC 4.31 Hgb 11.8 L Hct 36.3 MCV 84.2 MCH 27.4 MCHC 32.5 RDW 13.6 Plt Count 210 MPV 8.8 Gran % 82.6 H Lymph % (Auto) 10.1 L [place] % (Auto) 7.0 H Eos % (Auto) 0.2 L Baso % (Auto) 0.1 Gran # 9.41 H Lymph # (Auto) 1.2 [place] # (Auto) 0.8 H Eos # (Auto) 0.0 Baso # (Auto) 0.01 PT 11.8 INR 1.03 APTT 22.5 L Sodium 143 Potassium 4.0 Chloride 103 Carbon Dioxide 30 Anion Gap 14 BUN 18 Creatinine 1.0 Est GFR ( Amer) > 60 Est GFR (Non-Af Amer) 55 Random Glucose 107 Calcium 9.8 Total Bilirubin 0.6 AST 30 ALT 32 Alkaline Phosphatase 78 Total Protein 6.7 Albumin 3.8 Globulin 2.9 Albumin/Globulin Ratio 1.3 Urine Color Urine Appearance Urine pH Ur Specific [place] Urine Protein Urine Glucose (UA) Urine Ketones Urine Blood Urine Nitrate Urine Bilirubin Urine Urobilinogen Ur Leukocyte Esterase Urine RBC Urine WBC Ur Epithelial Cells Urine Bacteria 06/10/17 21:23 WBC RBC Hgb Hct MCV MCH MCHC RDW Plt Count MPV Gran % Lymph % (Auto) [place] % (Auto) Eos % (Auto) Baso % (Auto) Gran # Lymph # (Auto) [place] # (Auto) Eos # (Auto) Baso # (Auto) PT INR APTT Sodium Potassium Chloride Carbon Dioxide Anion Gap BUN Creatinine Est GFR ( Amer) Est GFR (Non-Af Amer) Random Glucose Calcium Total Bilirubin AST ALT Alkaline Phosphatase Total Protein Albumin Globulin Albumin/Globulin Ratio Urine Color Yellow Urine Appearance Clear Urine pH 6.0 Ur Specific [place] 1.025 Urine Protein Negative Urine Glucose (UA) Negative Urine Ketones Negative Urine Blood Negative Urine Nitrate Negative Urine Bilirubin Negative Urine Urobilinogen 0.2 Ur Leukocyte Esterase Trace H Urine RBC 0 - 2 Urine WBC 2 - 5 Ur Epithelial Cells 3 - 4 Urine Bacteria Mod
--- NOTE | 2017-06-11 10:30 | RAD ---
PROCEDURE: Right Hip Radiographs. HISTORY: hip pain COMPARISON: None. FINDINGS: BONES: Normal. No fracture. JOINTS: Normal. SOFT TISSUES: Normal. OTHER FINDINGS: None. IMPRESSION: Normal radiographs of right hip.
== END 2017-06-11 00:14 | disposition home or self-care (01) ==
LOC: ED 14:31 → UNDOADMIN 22:28 → ERH 22:28
DX: M25.551 Pain in right hip (principal); M54.9 Dorsalgia, unspecified; M48.54XA Collapsed vertebra, not elsewhere classified, thoracic region, initial encounter for fracture; R26.2 Difficulty in walking, not elsewhere classified; I10 Essential (primary) hypertension; E11.9 Type 2 diabetes mellitus without complications